=== PATIENT | female | born 1995 | race American Indian/Alaskan Native ===

== ENCOUNTER 2016-07-17 05:35 | Emergency (ER) | payer OTHER ==
[2016-07-17] MEDS ORDERED: DUONEB 0.5 MG-3 MG/3 ML SOLN IH ONE ×3 (05:38→06:11)
[2016-07-17] MEDS ORDERED: DELTASONE PO ONE (06:11)
[2016-07-17] MEDS ORDERED: PROVENTIL IH ONE (06:59)
--- NOTE | 2016-07-17 07:09 | Emergency Department Report ---
ED Asthma HPI - General Chief Complaint: Adult Asthma Stated Complaint: ASTHMA Time Seen by Provider: 07/17/16 06:11 Source: patient Mode of arrival: Ambulatory Limitations: No Limitations - History of Present Illness Initial Comments: 20-year-old female past medical history asthma presents with complaint of shortness of breath since last night, patient states she has been wheezing since last night ran out of albuterol inhaler. On exam patient is awake alert and oriented 3 no audible wheezing or stridor no visible respiratory retractions. Patient received one nebulizer treatment in triage and states she is artery feeling slightly better. Denies any history of intubations no fever no chills no productive cough. He is staying at a family member's house and that she thinks that her asthma was activated by pet dander. Complaint: wheezing Onset/Timin -: hour(s) Asthma History: childhood onset Severity: moderate Context: pet exposure Associated Symptoms: none Treatments Prior to Arrival: inhaled bronchodilator - Related Data Previous Rx's Medication Instructions Recorded Last Taken Type ALBUTEROL Inhaler [ProAir HFA 2 puff IH QID PRN #1 inhalation 07/17/16 Unknown Rx Inhaler] predniSONE [Deltasone] 40 mg PO QDAY #10 tab 07/17/16 Unknown Rx Allergies Allergy/AdvReac Type Severity Reaction Status Date / Time No Known Allergies Allergy Unverified 07/17/16 05:45 ED Review of Systems ROS: Stated complaint: ASTHMA Other details as noted in HPI Constitutional: denies: chills, fever Eyes: denies: eye pain, eye discharge, vision change ENT: denies: ear pain, throat pain Respiratory: wheezing. denies: cough, shortness of breath Cardiovascular: denies: chest pain, palpitations Endocrine: no symptoms reported Gastrointestinal: denies: abdominal pain, nausea, diarrhea Genitourinary: denies: urgency, dysuria, discharge Musculoskeletal: denies: back pain, joint swelling, arthralgia Skin: denies: rash, lesions Neurological: denies: headache, weakness, paresthesias Psychiatric: denies: anxiety, depression Hematological/Lymphatic: denies: easy bleeding, easy bruising ED Past Medical Hx - Past Medical History Previous Medical History?: Yes Hx Asthma: Yes - Social History Smoking Status: Never Smoker - Medications Home Medications: Home Medications Medication Instructions Recorded Confirmed Last Taken Type ALBUTEROL Inhaler [ProAir HFA 2 puff IH QID PRN #1 inhalation 07/17/16 Unknown Rx Inhaler] predniSONE [Deltasone] 40 mg PO QDAY #10 tab 07/17/16 Unknown Rx ED Physical Exam - General Limitations: No Limitations General appearance: alert, in no apparent distress - Head Head exam: Present: atraumatic, normocephalic - Eye Eye exam: Present: normal appearance, PERRL, EOMI - ENT ENT exam: Present: mucous membranes moist - Neck Neck exam: Present: normal inspection, full ROM - Respiratory Respiratory exam: Present: normal lung sounds bilaterally, wheezes ( wheezing on auscultation of right side lung field). Absent: respiratory distress - Cardiovascular Cardiovascular Exam: Present: regular rate, normal rhythm. Absent: systolic murmur, diastolic murmur, rubs, gallop - GI/Abdominal GI/Abdominal exam: Present: soft, normal bowel sounds - Extremities Exam Extremities exam: Present: normal inspection - Back Exam Back exam: Present: normal inspection - Neurological Exam Neurological exam: Present: alert, oriented X3 - Psychiatric Psychiatric exam: Present: normal affect, normal mood - Skin Skin exam: Present: warm, dry, intact, normal color. Absent: rash ED Course Vital Signs 07/17/16 07/17/16 07/17/16 05:48 07:45 08:06 Temperature 98.0 F 97.9 F Pulse Rate 77 91 H Pulse Rate [ 94 H Posterior Bilateral Throughout] Respiratory 22 18 Rate Respiratory 18 Rate [Posterior Bilateral Throughout] Blood Pressure 116/73 Blood Pressure 103/68 [Left] O2 Sat by Pulse 95 94 Oximetry 07/17/16 08:33 Temperature Pulse Rate Pulse Rate [ Posterior Bilateral Throughout] Respiratory Rate Respiratory Rate [Posterior Bilateral Throughout] Blood Pressure Blood Pressure [Left] O2 Sat by Pulse 96 Oximetry ED Medical Decision Making - Medical Decision Making A/P: Active airway disease, asthma exacerbation 1-refill on albuterol 2-prednisone 5 day course 3-patient feels significant relief after nebulizer treatments, is able to ambulate without drop in o2 sat on RA, PF at baseline Critical care attestation.: If time is entered above; I have spent that time in minutes in the direct care of this critically ill patient, excluding procedure time. ED Disposition Clinical Impression: Reactive airway disease with acute exacerbation Disposition: DISCHARGED TO HOME OR SELFCARE Is pt being admited?: No Does the pt Need Aspirin: No Condition: Stable Instructions: Asthma (ED), Reactive Airways Disease (ED) Prescriptions: ALBUTEROL Inhaler [ProAir HFA Inhaler] 2 puff IH QID PRN #1 inhalation PRN Reason: Shortness Of Breath predniSONE [Deltasone] 40 mg PO QDAY #10 tab Referrals: PRIMARY CARE, [Primary Care Provider] - 3-5 Days Forms: Work/School Release Form(ED) Time of Disposition: 07:14
[2016-07-17 07:47] VITALS: BP 103/68
--- NOTE | 2016-07-20 10:36 | Event Note ---
Date: 07/17/16 SHe is a 20-year-old female with a history of asthma who was seen by KATIUSKA Vargas. Patient was signed off to me at 7:10 AM MDM: She received a third albuterol treatment. Patient states she is doing so much better. Patient saturation increased to 96%. Vital signs are normal. Patient was in no acute or respiratory distress. Lung exam after treatment: Mild wheezing at the lung bases. Otherwise normal. No use of assessory muscle. Acid patient to take medication as prescribed. Patient was sent home on prednisone, albuterol inhaler and nebulizer. She was discharged to go home. She states she understands instructions and will follow up as discussed.
== END 2016-07-17 08:34 | disposition home or self-care (01) ==
LOC: ED 05:35
DX: J45.901 Unspecified asthma with (acute) exacerbation (principal)
CPT/HCPCS: 94640; 99283; J7512

== ENCOUNTER 2019-05-05 19:20 | Emergency (ER) | payer OTHER ==
--- NOTE | 2019-05-05 21:41 | Emergency Department Report ---
Blank Doc - Documentation Documentation: 23-year-old female that presents with vaginal bleeding and pelvic pain. Unsure how far along of she is. This initial assessment/diagnostic orders/clinical plan/treatment(s) is/are subject to change based on patient's health status, clinical progression and re-assessment by fellow clinical providers in the ED. Further treatment and workup at subsequent clinical providers discretion. Patient/guardians urged not to elope from the ED as their condition may be serious if not clinically assessed and managed. Initial orders include: 1- Patient sent to [facility] for further evaluation and treatment 2- labs 3- UA 4- US OB
[2019-05-05 21:42] VITALS: BP 111/62
[2019-05-05 22:30] LABS: Basophils # (Auto) 0.1 K/mm3 (0.0-0.1); Basophils % (Auto) 0.6 % (0.0-1.8); Eosinophils # (Auto) 0.8 K/mm3 (0.0-0.4); Hematocrit 36.9 % (30.3-42.9); Hemoglobin 12.8 gm/dl (10.1-14.3); Lymphocytes # (Auto) 3.2 K/mm3 (1.2-5.4); Mean Corpuscular HGB Conc 35 % (30-34); Mean Corpuscular Volume 94 fl (79-97); Monocytes # (Auto) 1.3 K/mm3 (0.0-0.8); Monocytes % (Auto) 10.5 % (0.0-7.3); Platelet Count 262 K/mm3 (140-440); Red Blood Count 3.92 M/mm3 (3.65-5.03); Red Cell Distribution Width 13.1 % (13.2-15.2)
[2019-05-05 23:41] LABS: Bilirubin,Urine NEG (Negative); Blood,Urine NEG (Negative); Color,Urine Yellow (Yellow); Mucus,Urine FEW /HPF; Protein,Urine <15 mg/dL mg/dL (Negative); Urobilinogen,Urine < 2.0 mg/dL (<2.0)
--- NOTE | 2019-05-06 01:12 | Ultrasound Report ---
ULTRASOUND OBSTETRIC INDICATION: pelvic pain and vaginal bleeding. TECHNIQUE: Transabdominal and Transvaginal. COMPARISON: None available. FINDINGS: GESTATIONAL SAC: Well-defined oval shape and intrauterine in location. YOLK SAC: No significant abnormality. EMBRYO/FETUS: No significant abnormality. - [place]-Rump Length = 0.6 cm = 6 weeks, 3 day(s). - Heart Rate = 117 beats per minute. ADNEXA: A simple appearing right ovarian cyst measures 5.1 x 4.1 x 4.8 cm and is likely benign. No ot her significant abnormality. FREE FLUID: None. ADDITIONAL FINDINGS: None. IMPRESSION: 1. Single, living intrauterine with estimated sonographic age of 6 weeks, 3 day(s). 2. No acute abnormality of the pelvis. Signer Name: Sincere Giraldo MD Signed: 05/06/2019 1:08 AM Workstation Name: [id number]
--- NOTE | 2019-05-06 01:12 | Ultrasound Report ---
ULTRASOUND OBSTETRIC INDICATION: pelvic pain and vaginal bleeding. TECHNIQUE: Transabdominal and Transvaginal. COMPARISON: None available. FINDINGS: GESTATIONAL SAC: Well-defined oval shape and intrauterine in location. YOLK SAC: No significant abnormality. EMBRYO/FETUS: No significant abnormality. - [place]-Rump Length = 0.6 cm = 6 weeks, 3 day(s). - Heart Rate = 117 beats per minute. ADNEXA: A simple appearing right ovarian cyst measures 5.1 x 4.1 x 4.8 cm and is likely benign. No ot her significant abnormality. FREE FLUID: None. ADDITIONAL FINDINGS: None. IMPRESSION: 1. Single, living intrauterine with estimated sonographic age of 6 weeks, 3 day(s). 2. No acute abnormality of the pelvis. Signer Name: Sincere Giraldo MD Signed: 05/06/2019 1:08 AM Workstation Name: [id number]
[2019-05-06] MEDS ORDERED: ACETAMINOPHEN 500 MG TAB PO ONE (02:07)
--- NOTE | 2019-05-06 02:59 | Emergency Department Report ---
ED Female HPI - General Chief complaint: Abdominal Pain Stated complaint: VAG. BLEEDING Time Seen by Provider: 05/05/19 21:39 Source: patient Mode of arrival: Ambulatory Limitations: No Limitations - History of Present Illness Initial comments: Patient is a A2 23-year-old -Malagasy female with no past medical history who presents to the ED with acute onset persistent pelvic pain and vaginal bleeding for the last 12 hours. Patient states that she recently found out that she was but unsure how far along she may be. Patient denies fever, chills, dysuria, urinary frequency and urgency, traumatic injury, heavy lifting, nausea, vomiting, diarrhea, dyspareunia, low back pain, syncope or change in vision and generalized weakness. MD Complaint: vaginal bleeding, pelvic pain -: Sudden, hour(s) (12) Location: suprapubic, other (vaginal) Radiation: non-radiating Severity: moderate Severity scale (0 -10): 6 Quality: cramping, sharp Consistency: constant Improves with: none Worsens with: none Are you Now?: Yes (Yes) Associated Symptoms: denies other symptoms, vaginal bleeding, abdominal pain (suprapubic). denies: nausea/vomiting, fever/chills, headaches, loss of appetite, dysuria, hematuria, rash, shortness of breath, syncope, weakness - Related Data Sexually active: Yes : 3 Para: 0 A: 2 Previous Rx's Medication Instructions Recorded Last Taken Type Albuterol INH(or & Nicu Only) 2 puff IH QID PRN #1 inhalation 07/17/16 Unknown Rx [ProAir HFA Inhaler] predniSONE [Deltasone] 40 mg PO QDAY #10 tab 07/17/16 Unknown Rx Acetaminophen [Tylenol] 500 mg PO Q6HR #30 tablet 05/06/19 Unknown Rx Allergies Allergy/AdvReac Type Severity Reaction Status Date / Time No Known Allergies Allergy Verified 05/05/19 19:26 ED Review of Systems ROS: Stated complaint: VAG. BLEEDING Other details as noted in HPI Constitutional: denies: chills, fever Eyes: denies: eye pain, eye discharge, vision change ENT: denies: ear pain, throat pain Respiratory: denies: cough, shortness of breath, wheezing Cardiovascular: denies: chest pain, palpitations Endocrine: no symptoms reported Gastrointestinal: abdominal pain (pelvic pain). denies: nausea, diarrhea Genitourinary: abnormal menses (vaginal bleeding). denies: urgency, dysuria, discharge Musculoskeletal: denies: back pain, joint swelling, arthralgia Skin: denies: rash, lesions Neurological: denies: headache, weakness, paresthesias Psychiatric: denies: anxiety, depression Hematological/Lymphatic: denies: easy bleeding, easy bruising ED Past Medical Hx - Past Medical History Previous Medical History?: Yes Hx Asthma: Yes - Surgical History Past Surgical History?: Yes Hx Breast Surgery: Yes - Social History Smoking Status: Never Smoker Substance Use Type: None - Medications Home Medications: Home Medications Medication Instructions Recorded Confirmed Last Taken Type Albuterol INH(or & Nicu Only) 2 puff IH QID PRN #1 inhalation 07/17/16 Unknown Rx [ProAir HFA Inhaler] predniSONE [Deltasone] 40 mg PO QDAY #10 tab 07/17/16 Unknown Rx Acetaminophen [Tylenol] 500 mg PO Q6HR #30 tablet 05/06/19 Unknown Rx ED Physical Exam - General Limitations: No Limitations General appearance: alert, in no apparent distress - Head Head exam: Present: atraumatic, normocephalic, normal inspection - Eye Eye exam: Present: normal appearance, PERRL, EOMI Pupils: Present: normal accommodation - ENT ENT exam: Present: normal exam, normal orophraynx, mucous membranes moist, TM's normal bilaterally, normal external ear exam - Neck Neck exam: Present: normal inspection, full ROM - Respiratory Respiratory exam: Present: normal lung sounds bilaterally. Absent: respiratory distress, wheezes, rales, rhonchi, chest wall tenderness, accessory muscle use, decreased breath sounds, prolonged expiratory - Cardiovascular Cardiovascular Exam: Present: regular rate, normal rhythm, normal heart sounds. Absent: systolic murmur, diastolic murmur, rubs, gallop - GI/Abdominal GI/Abdominal exam: Present: soft, tenderness (Palpable suprapubic mild te nderness), normal bowel sounds. Absent: hyperactive bowel sounds, hypoactive bowel sounds - Bi-manual exam: Present: other (Pelvic exam deferred, patient preference) - Extremities Exam Extremities exam: Present: normal inspection, full ROM, normal capillary refill - Back Exam Back exam: Present: normal inspection, full ROM. Absent: tenderness, CVA tenderness (L), paraspinal tenderness, vertebral tenderness - Neurological Exam Neurological exam: Present: alert, oriented X3, CN II-XII intact, normal gait, reflexes normal - Psychiatric Psychiatric exam: Present: normal affect, normal mood - Skin Skin exam: Present: warm, dry, intact, normal color. Absent: rash ED Course Vital Signs 05/05/19 05/05/19 05/06/19 19:27 21:38 03:15 Temperature 98.0 F 98 F Pulse Rate 69 70 78 Respiratory 18 18 16 Rate Blood Pressure 111/62 111/62 O2 Sat by Pulse 97 100 99 Oximetry ED Medical Decision Making - Lab Data Result diagrams: 05/05/19 22:06 - Radiology Data Radiology results: report reviewed, image reviewed Findings [place] [id number] Ultrasound Report Signed Patient: DENISSE MCLEAN MR#: [id number] : 1995 Acct:[id number] Age/Sex: 23 / F ADM Date: 05/05/19 Loc: ED Attending Dr: Ordering Physician: LEMUEL SAUCEDO NP Date of Service: 05/05/19 Procedure(s): US OB transvaginal Accession Number(s): [id number] cc: LEMUEL SAUCEDO NP ULTRASOUND OBSTETRIC INDICATION: pelvic pain and vaginal bleeding. TECHNIQUE: Transabdominal and Transvaginal. COMPARISON: None available. FINDINGS: GESTATIONAL SAC: Well-defined oval shape and intrauterine in location. YOLK SAC: No significant abnormality. EMBRYO/FETUS: No significant abnormality. - [place]-Rump Length = 0.6 cm = 6 weeks, 3 day(s). - Heart Rate = 117 beats per minute. ADNEXA: A simple appearing right ovarian cyst measures 5.1 x 4.1 x 4.8 cm and is likely benign. No other significant abnormality. FREE FLUID: None. ADDITIONAL FINDINGS: None. IMPRESSION: 1. Single, living intrauterine with estimated sonographic age of 6 weeks, 3 day(s). 2. No acute abnormality of the pelvis. Signer Name: Sincere Giraldo MD Signed: 05/06/2019 1:08 AM Workstation Name: [id number] Transcribed By: [place] Dictated By: Sincere Giraldo MD Electronically Authenticated By: Sincere Giraldo MD Signed Date/Time: 05/06/19107 DD/ 5 TD/TT: - Medical Decision Making This is a A2 23-year-old -Malagasy female with no past medical history who presented to the ED with acute onset persistent pelvic pain and vaginal bleeding for the last 12 hours. In the ED, patient is alert and oriented x3 and is not in any distress with normal vital signs. Patient was treated for pain with Tylenol. The lab test results were reviewed and showed acute leukocytosis of 12,000 [place] [id number]. The urinalysis is unremarkable with no blood in urine. The transvaginal ultrasound shows a single, living intrauterine with estimated sonographic age of 6 weeks, 3 day(s), and with heart rate of 117 bpm and no other acute abnormality of the pelvis. On reevaluation, patient's pain is well controlled with medications. Patient was discharged home and advised to maintain a complete pelvic rest with no heavy lifting or strenuous physical activities, sexual activities and to take Tylenol as needed for pain, and follow-up with her [facility] physician in 5 to 7 days for reevaluation. Patient was however advised return to the ED immediately if symptoms get worse. - Differential Diagnosis Threatened miscarriage; UTI; Ectopic ; Ovarian cyst; Subchorionic Critical care attestation.: If time is entered above; I have spent that time in minutes in the direct care of this critically ill patient, excluding procedure time. ED Disposition Clinical Impression: Threatened miscarriage in early Abdominal pain in Qualifiers: Trimester: first trimester Qualified Code(s): O26.891 - Other specified related conditions, first trimester Disposition: DC-01 TO HOME OR SELFCARE Is pt being admited?: No Does the pt Need Aspirin: No Condition: Stable Instructions: Threatened Miscarriage (ED), Abdominal Pain in (ED) Additional Instructions: Maintain a complete pelvic rest, take Tylenol as needed for pain and vitamins, follow-up with your [facility] physician in 5 to 7 days for reevaluation. Return to the ED immediately if symptoms get worse. Prescriptions: Acetaminophen [Tylenol] 500 mg PO Q6HR #30 tablet Referrals: MAYELIN PEDRAZA MD [Staff Physician] - 3-5 Days Forms: Work/School Release Form(ED) Time of Disposition: 02:57 Print Language: YAKUT
== END 2019-05-06 03:15 | disposition home or self-care (01) ==
LOC: ED 19:20
DX: O20.0 Threatened abortion (principal); Z98.890 Other specified postprocedural states; Z79.899 Other long term (current) drug therapy; Z3A.01 Less than 8 weeks gestation of pregnancy
CPT/HCPCS: 36415; 76801; 76817; 81001; 84702; 85025; 86900; 86901

== ENCOUNTER 2019-07-10 14:12 | Emergency (ER) | payer OTHER ==
[2019-07-10] MEDS ORDERED: IPRATROPIUM/ALBUTEROL SULFATE 3 ML AMPUL.NEB IH ONE (14:27)
--- NOTE | 2019-07-10 14:40 | Emergency Department Report ---
ED Asthma HPI - General Chief Complaint: Adult Asthma Stated Complaint: ASTHMA Time Seen by Provider: 07/10/19 14:30 Source: patient Mode of arrival: Ambulatory Limitations: No Limitations - History of Present Illness Initial Comments: Patient is 23 years old female with history of asthma. Patient also 16 weeks . Patient presented to the ER complaining of shortness of breath and wheezing for 1week. Patient stated that she has been using her nebulizer but no improvement. Patient denied any fever or chills. No runny nose or congestion recently. Patient denied any contact with patient who is suspected or confirmed for COVID-19. MD Complaint: shortness of breath, wheezing -: days(s) (7) Asthma History: childhood onset Severity: moderate Associated Symptoms: none - Related Data Current Asthma Therapy: inhaled bronchodilator Previous Rx's Medication Instructions Recorded Last Taken Type Albuterol INH(or & Nicu Only) 2 puff IH QID PRN #1 inhalation 07/17/16 Unknown Rx [ProAir HFA Inhaler] predniSONE [Deltasone] 40 mg PO QDAY #10 tab 07/17/16 Unknown Rx Acetaminophen [Tylenol] 500 mg PO Q6HR #30 tablet 05/06/19 Unknown Rx Allergies Allergy/AdvReac Type Severity Reaction Status Date / Time No Known Allergies Allergy Verified 05/05/19 19:26 ED Review of Systems ROS: Stated complaint: ASTHMA Other details as noted in HPI Comment: All other systems reviewed and negative Constitutional: denies: chills, fever Respiratory: shortness of breath, wheezing. denies: cough, orthopnea Cardiovascular: denies: chest pain, palpitations Gastrointestinal: denies: abdominal pain, nausea, vomiting Musculoskeletal: denies: back pain ED Past Medical Hx - Past Medical History Previous Medical History?: Yes Hx Asthma: Yes - Surgical History Hx Breast Surgery: Yes - Social History Smoking Status: Never Smoker Substance Use Type: None - Medications Home Medications: Home Medications Medication Instructions Recorded Confirmed Last Taken Type Albuterol INH(or & Nicu Only) 2 puff IH QID PRN #1 inhalation 07/17/16 Unknown Rx [ProAir HFA Inhaler] predniSONE [Deltasone] 40 mg PO QDAY #10 tab 07/17/16 Unknown Rx Acetaminophen [Tylenol] 500 mg PO Q6HR #30 tablet 05/06/19 Unknown Rx ED Physical Exam - General Limitations: No Limitations General appearance: alert, in no apparent distress - Head Head exam: Present: atraumatic, normocephalic, normal inspection - Eye Eye exam: Present: normal appearance, PERRL - ENT ENT exam: Present: normal exam, normal orophraynx, mucous membranes moist - Neck Neck exam: Present: normal inspection, full ROM. Absent: tenderness, meningismus, lymphadenopathy, thyromegaly - Respiratory Respiratory exam: Present: wheezes. Absent: rales, rhonchi, chest wall tenderness, accessory muscle use, decreased breath sounds, prolonged expiratory - Cardiovascular Cardiovascular Exam: Present: regular rate, normal rhythm, normal heart sounds - GI/Abdominal GI/Abdominal exam: Present: soft, normal bowel sounds. Absent: distended, tenderness, guarding, rebound, rigid, organomegaly, mass, bruit, pulsatile mass, hernia - Extremities Exam Extremities exam: Present: normal inspection, full ROM, normal capillary refill. Absent: tenderness, pedal edema, calf tenderness - Back Exam Back exam: Present: normal inspection, full ROM. Absent: CVA tenderness (R), CVA tenderness (L) - Neurological Exam Neurological exam: Present: alert, oriented X3, CN II-XII intact, normal gait, reflexes normal. Absent: motor sensory deficit - Skin Skin exam: Present: warm, intact, normal color ED Course Vital Signs 07/10/19 14:16 Temperature 97.7 F Pulse Rate 95 H Respiratory 22 Rate Blood Pressure 118/64 O2 Sat by Pulse 96 Oximetry ED Medical Decision Making - Radiology Data Radiology results: report reviewed - Medical Decision Making Patient is 23 years old female with history of asthma. Patient also 16 weeks . Patient presented to the ER complaining of shortness of breath and wheezing for 1week. Patient stated that she has been using her nebulizer but no improvement. Patient denied any fever or chills. No runny nose or congestion recently. Patient denied any contact with patient who is suspected or confirmed for COVID-19. Patient denied any abdominal pain, vaginal bleeding or vaginal discharge. Patient received a DuoNeb treatment. Patient stated that she is feeling much better. Chest x-ray is unremarkable. Patient advised to follow-up with her primary care physician in the next 2 to 3 days and to return to the ER if she develop any new symptoms. Critical care attestation.: If time is entered above; I have spent that time in minutes in the direct care of this critically ill patient, excluding procedure time. ED Disposition Clinical Impression: Asthma exacerbation Disposition: DC-01 TO HOME OR SELFCARE Is pt being admited?: No Condition: Stable Instructions: Asthma (ED) Referrals: PRIMARY CARE, [Referring] - 3-5 Days
[2019-07-10] MEDS ORDERED: ALBUTEROL 2.5 MG/3 ML NEBU IH ONE (15:11)
--- NOTE | 2019-07-10 15:19 | XRay Report ---
CHEST 1 VIEW INDICATION: Asthma. COMPARISON: None FINDINGS: Support devices: None. Heart: Within normal limits. Lungs/Pleura: No acute air space or interstitial disease. Additional findings: None. IMPRESSION: No acute findings. Signer Name: Conor Patterson Jr, MD Signed: 07/10/2019 3:14 PM Workstation Name: [id number]
[2019-07-10 16:40] VITALS: BP 122/69
== END 2019-07-10 16:09 | disposition home or self-care (01) ==
LOC: ED 14:12
DX: O99.512 Diseases of the respiratory system complicating pregnancy, second trimester (principal); J45.901 Unspecified asthma with (acute) exacerbation; Z3A.16 16 weeks gestation of pregnancy; Z90.49 Acquired absence of other specified parts of digestive tract
CPT/HCPCS: 71045